=== PATIENT | male | born 1985 | race Caucasian/White ===

== ENCOUNTER 2024-04-15 08:37 | Outpatient (CLI) | payer BC | END 2024-04-15 08:38 | disposition home or self-care (01) | LOC: CSHMRI 08:37 | PROVIDERS: ATTEND Nurse Practitioner Family | DX: R20.0 Anesthesia of skin (principal); R20.2 Paresthesia of skin; M51.26 Other intervertebral disc displacement, lumbar region; M51.27 Other intervertebral disc displacement, lumbosacral region | CPT/HCPCS: 72148 ==